=== PATIENT | female | born 1960 | race Caucasian/White ===

== ENCOUNTER 2017-11-21 10:21 | Observation (INO) | payer BC, SELFPAY ==
[2017-11-21] VITALS (12 sets, daily range): BP systolic 114–150; BP diastolic 59–82; PULSE 54–83; RESP 16–20; TEMP 35.9–36.8; O2SAT 84–99; BMI 38.7
--- NOTE | 2017-11-21 | GALL_PTH ---
PATIENT: CLYDE REES LOC: MS3 U#:[id number] AGE/SX: 57/F ROOM: MS315 RE11/21/[address]: Dr. Roxanne Piper MD : 1960 BED: 1 DIS: 11/22/2017 SPEC #: [id number] RECD: 11/22/17 14:11 STATUS: JOSIAH REGabby #: [id number] BASIA: 11/21/17 00:[address]: Roxanne Piper DEPT: SURGICAL PATHOLOGY RECD BY: Ant Steiner ENTERED: 11/22/17 14:11 SP TYPE: ASPEN NOVOA DR: No Primary Care Phys Tissues: Gallbladder, NOS Procedures: Surgery Specimen Level III HEADER OPERATION: Laparoscopic cholecystectomy with IOC PRE-OP DIAGNOSIS: Cholelithiasis, right upper quadrant pain TISSUE SUBMITTED: Gallbladder and contents MICROSCOPIC DIAGNOSIS Gallbladder and contents: Acute and chronic hemorrhagic and ulcerated cholecystitis and cholelithiasis. SJ:ruby 11/23/17 MICROSCOPIC DESCRIPTION Slides are reviewed. GROSS DESCRIPTION Received is one container labeled with the patient's name and designated gallbladder. The specimen consists of a previously opened gallbladder measuring 7.5 cm in length and 3.5 cm in diameter. The gallbladder is congested. Present in the gallbladder is an ovoid, black, irregular stone measuring 4 x 2.5 x 2 cm. A small amount of sludge material is also noted in the gallbladder. No bile is noted. A small amount of sludge material is noted in the container. No bile is noted in the gallbladder. The mucosa is congested. The gallbladder wall measures up to 0.5 cm in thickness. Registered Nurse Ambulatory sections from the gallbladder and the cystic duct are submitted in one cassette. / ESTEPHANIE:ruby 11/22/17 TC:2 CPT: 68735
--- NOTE | 2017-11-21 06:05 | EKG12_ITS ---
Test Reason : PRE-OP Blood Pressure : / mmHG Vent. Rate : 074 BPM Atrial Rate : 074 BPM P-R Int : 124 ms QRS Dur : 080 ms QT Int : 394 ms P-R-T Axes : 072 -22 043 degrees QTc Int : 437 ms Normal sinus rhythm Normal ECG Confirmed by ELSIE PIRES, NINA ([id number]), supervising film or videotape editor JUAN A SILVA ([id number]) on 11/26/2017 2:04:17 PM Referred By: Roxanne Piper Confirmed By:NINA ZIMMERMAN MD
[2017-11-21 06:33] LABS: Hematocrit 48.8 % (37-47); Hemoglobin 16.4 g/dl (12.0-15.0); Mean Corp Hgb Conc 33.6 g/gl (32-36); Mean Corpuscular Hgb 30.8 pg (27.0-32.0); Mean Corpuscular Volume 91.7 fL (81-99); Mean Platelet Vol. 10.3 fl (6.2-12.0); Platelet Count 205 K/mm3 (150-450); RBC Distribution Width CV 13.6 % (11.6-14.6); RBC Distribution Width SD 45.6 fl (35.1-43.9); Red Blood Count 5.32 M/mm3 (4.2-5.4); White Blood Count 9.3 K/mm3 (4.4-11.0)
[2017-11-21 06:37] LABS: Scan Indicated on CBC? Y/N NO
--- NOTE | 2017-11-21 06:40 | HP.PCM_ITS ---
History and Physical Date of Admission: 11/21/17 Reina Olivas 1960 ? ? REFERRING PHYSICIAN: Vinayak Sheffield * ? CHIEF COMPLAINT: Abdominal Pain ? HPI: The patient is a 57 year old female presents with right upper quadrant abdominal pain. US gallbladder today reveals stone in the neck of the gallbladder, the gallbladder is distended and filled with sludge, also with wall thickening. Patient states that she has been having abdominal pain for the past two weeks. She has been only able to eat crackers and water due to nausea/emesis and then dry retching. Denies fevers/chills. Denies previous history of abdominal pain. Denies biliary obstructive signs such as jaundice, icterus, etc. ?? PAST MEDICAL HISTORY Adenomatous polyp of colon 10/27/2016 MICKEY III (cervical intraepithelial neoplasia grade III) with severe dysplasia 01/17/2017 ? Added automatically from request for surgery [id number] Diverticulosis of large intestine without hemorrhage 10/27/2016 HPV in female ? Menorrhagia ? ILIA III (vulvar intraepithelial neoplasia III) 01/17/2017 ? Added automatically from request for surgery [id number] ? PAST SURGICAL HISTORY BIOPSY OF VULVA ? 12/21/2016 DELIVERY ONLY ? 1990 ? , low cervical COLONOSCOP W/ OR W/O [facility] [place] [facility] ? 08/01/2013 ? Colonoscopy COLONOSCOP W/ OR W/O [facility] [place] [facility] ? 10/20/2016 ? Colonoscopy- tubular adenomas x 2 repeat in 3 years LIGATE FALLOPIAN TUBE ? ? ? Tubal ligation ? ? PAST INJURIES Denies head injuries, denies history of fractures ? ?MEDICATIONS: ondansetron orally disintegrating (ZOFRAN ODT) 4 mg disintegrating tablet Take 1 tablet by mouth every 6 hours as needed for Nausea/Vomiting. ibuprofen (MOTRIN) 600 mg tablet Take 1 tablet by mouth every 6 hours as needed for Pain. docusate sodium (COLACE) 100 mg capsule Take 1 capsule by mouth twice daily. MULTIVITAMIN ORAL Take 1 tablet by mouth once daily. ? ? ALLERGIES: Cats; Sulfa (Sulfonamide Antibiotics) ? PERSONAL HISTORY: Social History Marital status: Single Spouse name: Years of education: Number of children: 4 Occupational History Occupation Employer Comment [employer] Social History Main Topics Smoking status: Current Every Day Smoker Packs/day: 0.50 Years: 0.00 Types: Cigarettes Start date: 1978 Smokeless tobacco: Never Used Alcohol use: Yes Comment: rarely Drug use: No Sexual activity: No ?? FAMILY HISTORY Emphysema Mother ? Diabetes Mother ? Diabetes Maternal Grandmother ? ? ? REVIEW OF SYSTEMS: General - denies fevers Cardiovascular - denies chest pain Pulmonary - denies shortness of breath, denies coughing up blood Gastrointestinal - see HPI Neurological - denies seizures Genitourinary - denies burning with urination, denies blood in urine Hematological - denies spontaneous/prolonged bleeding Skin - denies nonhealing skin wounds Musculoskeletal - denies chronic joint/back pain Endocrine - denies diabetes Psychological denies hallucinations ? PHYSICAL EXAMINATION: General: The patient is 57 year old female, well nourished, well hydrated in no acute distress. The patient is oriented to time, place, and person. VITALS: Ht: 5'2 Wt 212# BMI 39 Head Normocephalic. EOM intact with sclera clear and no icterus noted. Mouth with mucus membranes moist. Neck - supple with no jugular venous distention noted. Trachea is midline. No carotid bruits noted. Lungs clear to auscultation, distant breath sounds. No rales/rhonchi/wheezing noted. No labored breathing noted, such as retractions. . Heart distant S1 and S2 auscultated. No rubs/clicks/murmurs noted. Regular rate. Abdomen soft and benign. Normal bowel sounds. No abdominal bruits noted. Difficult to determine if any masses or organomegaly due to body habitus. Extremities no calf tenderness noted. No pitting edema noted. Skin normal skin integrity. Neurological gait normal, no focal deficits noted. Psych calm and appropriate RADIOLOGIC STUDIES: As Noted ? IMPRESSION: cholelithiasis ? PLAN: I have discussed the above with the patient. I have offered laparoscopic cholecystectomy, possible cholangiograms. I have offered surgery tomorrow, but patient defers this. Will try to schedule for Sunday. I have explained the procedure to the patient. I have counseled the patient as to the risks of the procedure, including but not limited to: infection, bleeding, injury to any blood vessels/nerves, scar tissue, injury to any intraabdominal organs, injury to bowel/bladder, injury to the common bile duct/biliary tree, bile leakage, intraabdominal abscess/bleeding , hernias at incisional sites, wound infections, complications of anesthesia, etc. the patient understands. The patient wishes to proceed. I have answered all questions to the patients satisfaction and the patient has no further questions. Diagnoses: (K80.00) Calculus of gallbladder with acute cholecystitis without obstruction (primary encounter diagnosis) (E66.09, Z68.39) Class 2 obesity due to excess calories without serious comorbidity with body mass index (BMI) of 39.0 to 39.9 in adult (Z72.0) Tobacco use ? ? ? Roxanne Piper MD
--- NOTE | 2017-11-21 08:28 | PCM.IMDPSTOP ---
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
--- NOTE | 2017-11-21 08:29 | PCM.DC.GB ---
Discharge Diet: No Restrictions Discharge Activity: Return to Normal Activity, May not drive while taking narcotic pain medications. Return to work on:: 12/07/17 Lifting Restrictions: no lifting greater than 20 pounds for two weeks Call your doctor if your incision/area has: Continuous Slow Oozing, Foul Smelling Discharge Call your doctor if you observe: Fever of 101 or Higher Additional Dressing/Incision Instructions:: Leave dressings in place. May get wet in shower. Do not soak wounds - no tub baths/swimming Allergies/Adverse Reactions: Allergies Sulfa (Sulfonamide Antibiotics) Allergy (Verified 11/20/17 16:05) Hives Medications to take at Discharge Multivitamins,Therapeutic [Multivitamin] 1 tablet PO DAILY 07/28/14 Hydrocodone/Acetaminophen [[facility] 5-325 Tablet] 1 ea PO Q6H PRN PRN 5 Days #15 tab 11/21/17 The following prescriptions were given: Hydrocodone/Acetaminophen [[facility] 5-325 Tablet] 1 ea PO Q6H PRN PRN 5 Days #15 tab PRN Reason: Pain Primary Care Physician: Care Physician,No Primary [Primary Care Provider] - Test Results: Test results from this visit will be discussed in further detail at your follow-up appointment, if applicable. Please Follow Up With: Roxanne Piper MD - call When: follow up with me next week for drain removal
[2017-11-21] MEDS: Cefazolin 2 GM in 0.9% Normal Saline 100 ML IV (08:32)
--- NOTE | 2017-11-21 09:15 | RAD_ITS ---
STUDY: INTRAOPERATIVE CHOLANGIOGRAM. REASON FOR EXAM: Female, 57 years old. Laparoscopic cholecystectomy. FLUOROSCOPY TIME (if supplied): (0:10) minutes/seconds TECHNIQUE: An intraoperative cholangiogram was performed by the surgeon. Imaging was submitted. COMPARISON: None. FINDINGS: A single image was submitted. Mild dilatation of the common bile duct. No contrast is seen within the duodenum. Possible distal common bile duct stones should be ruled out. RAD/Cholangiogram/ O R,Initial IMPRESSION: Mild dilatation of the common bile duct. No contrast is seen within the duodenum. Possible stones in the distal common bile duct. Electronically Signed: Pedro Philippe MD at 10:57 EDT Tel [phone], Service support ,
--- NOTE | 2017-11-21 10:21 | OP.PCM_ITS ---
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 Appropriate time out protocol was followed. The patient was then placed under general endotracheal anesthesia. The abdomen was then prepped with a sterile surgical skin preparation and sterile surgical drapes were placed. The supraumbilical skin fold was grasped with penetrating clamps and the skin and subcutaneous tissues were infiltrated with local anesthetic. A skin incision was then made with a 15 blade scalpel. The anterior abdominal wall was elevated and a Veress needle was carefully inserted into the intraabdominal cavity. It was checked to be in the proper position with a normal saline drop test. A CO2 pneumoperitoneum was then created. Once this was achieved, then the Veress needle was removed and an 11mm trocar was placed in its stead. A 10mm laparoscope was then inserted into the trocar and careful attention was directed to the intraabdominal contents. There was no evidence of injury to any intraabdominal organs from insertion of the Veress needle or the trocar. Under direct visualization, a 5mm subxiphoid trocar and two lateral 5mm right subcostal trocars were placed. The skin and subcutaneous tissues at these sites were infiltrated with local anethestic prior to placement of these trocars. Attention was then directed to the right upper quadrant of the abdomen. The gallbladder had omental adhesions to the free surface. These were taken down by electrocautery. The gallbladder wall was thickened and edematous. Surrounding tissue were inflamed. Taking down these adhesions took some time. Findings are consistent with severe acute on chronic cholecystitis. There were large stones in the gallbladder noted. Graspers were placed in the lateral trocars to grasp the distal aspect of the gallbladder and direct it cephalad and to grasp the gallbladder at Fatima?s pouch and direct it laterally. Dissection then began on the proximal gallbladder continuing down to the area of the triangle of Calot to bluntly dissect out the cystic duct. There was dense edematous tissue in this area, the dissection took some time. The neck of the gallbladder was then identified and blunt dissection continued to dissect out a segment of the cystic duct. A clip was then placed on the neck of the gallbladder. A small ductotomy was then made. A Ranfac catheter was brought in through a separate skin incision and placed into the cystic duct. An intraoperative cholangiogram was performed under fluoroscopy. The xray revealed no lesions in the common bile duct, arborization of the biliary tree, however, there was no flow into the duodenum. The patient was given glucagon by the anesthesia provider and it was allowed to circulate for at least 3 minutes. Also the catheter was flushed and irrigated gently. A repeat cholangiogram revealed no flow into the duodenum. The Ranfac catheter was then removed and two clips were placed proximal to the ductotomy and the cystic duct was then transected. The cystic artery was visualized and bluntly isolated and then two clips were placed proximally and one clip distally and then it was transected between the proximal and distal clips. The gallbladder was then from the liver bed using electrocautery. This took some time due the inflammatory tissues of the posterior gallbladder wall to the liver bed with no plane delineated. There was inflammatory oozing of the liver bed. The gallbladder was from the liver bed and placed in an endobag and brought out via the periumbilical trocar. It was then forwarded to pathology for analysis. The liver bed was carefully examined. There was no evidence of bile leakage or active bleeding. There was inflammatory oozing of the liver bed that was treated with placing surgicel against the liver bed. The cystic duct stump and cystic artery stump had their clips intact and there was no evidence of bile leakage or bleeding. Deyvi was also applied to the area of dissection. The remainder of the abdomen was grossly normal. A 15 Fr drain was brought in via one of the lateral trocars and sutured in placed to the abdominal wall skin using nylon suture. The CO2 was released and all trocars removed intact. The periumbilical fascia was approximated with a [id number] 0 vicryl suture. All skin incision were closed with 4-0 monocryl in a subdermal fashion. Cavilol and Steristrips were used to reinforce the skin closure. Sterile dressings were applied to all wounds. The patient was extubated and brought to the Recovery Room in stable condition. - Complications none noted - Admit VTE Documentation VTE Present on Admission: Yes VTE Mechan Device Prophylaxis: SCD's
[2017-11-21] MEDS: Lactated Ringers 1,000 ML 75 ML IV ×2 (11:32→20:33)
[2017-11-21] MEDS: Ondansetron 4 MG/2 ML Vial IV (11:57)
[2017-11-21] MEDS: 0.9% NaCl Peripheral Flush Adult/Peds IV ×2 (11:57→20:16)
[2017-11-21] MEDS: HYDROcodone Bitartrate/Apap 5/325 Tablet PO ×2 (17:15→20:16)
[2017-11-22] VITALS (10 sets, daily range): BP systolic 120–158; BP diastolic 59–83; PULSE 60–83; RESP 12–18; TEMP 36.5–36.7; O2SAT 83–96; BMI 38.7
[2017-11-22] MEDS: Morphine 4 MG/ML Syringe IV (06:46)
--- NOTE | 2017-11-22 08:22 | PCM.PN.SRG ---
Subjective: Patient feeling well this morning. - Physical Exam General: Alert, Oriented x3, Cooperative Neck: Supple Lungs: Normal air movement Cardiovascular: Regular rate, Regular Rhythm Abdomen: Soft, Non-Distended, Tender - Mild abdominal tenderness Musculoskeletal: No Muscle Wasting Psych/Mental Status: Normal Affect Vital Signs Temp Pulse Resp BP Pulse Ox 97.8 F 60 14 120/67 92 11/22/17 07:40 11/22/17 07:40 11/22/17 07:40 11/22/17 07:40 11/22/17 07:40 Oxygen Flow Rate (L/min) 2 Oxygen Delivery Method Room Air Weight: 211 lb 10.3 oz Body Mass Index (BMI) 38.7 Intake and Output for Last 24 Hours 11/20/17 11/21/17 11/22/17 23:59 23:59 23:59 Intake Total 2861 / 2861 1511 / 1511 Output Total 190 / 190 1380 / 1380 Balance 2671 / 2671 131 / 131 Clinical Impression(s) from Imaging Studies Cholangiogram 11/21/17 09:15 IMPRESSION: Mild dilatation of the common bile duct. No contrast is seen within the duodenum. Possible stones in the distal common bile duct. Electronically Signed: Pedro Philippe MD at 10:57 EDT Tel [phone], Service support , Medical Necessity - Tobacco Use Smoking Status: Current every day smoker Assessment/Plan 57-year-old female with acute cholecystitis and possible choledocholithiasis 1. Patient had cholangiogram during surgery yesterday which showed no flow into the duodenum and there is concern for choledocholithiasis as there is dilation of the biliary tree. 2. I discussed ERCP with the patient in detail today. I discussed the risks benefits alternatives. I discussed the risks including but not limited to bleeding, infection, perforation of the bowels or bile duct, pancreatitis. The patient understands the risks and is willing to proceed with surgery. I also explain the possibilities having to place a stent or being unable to cannulate the duct. 3. N.p.o., IV fluids 4. Plan for ERCP this afternoon Mando Fay MD Pager: [facility] [address] [place] [address], [address] [place] [phone] Office:
--- NOTE | 2017-11-22 08:25 | PN.SURG_ITS ---
Subjective: Patient feeling well this morning. - Physical Exam General: Alert, Oriented x3, Cooperative Neck: Supple Lungs: Normal air movement Cardiovascular: Regular rate, Regular Rhythm Abdomen: Soft, Non-Distended, Tender - Mild abdominal tenderness Musculoskeletal: No Muscle Wasting Psych/Mental Status: Normal Affect Vital Signs Temp Pulse Resp BP Pulse Ox 97.8 F 60 14 120/67 92 11/22/17 07:40 11/22/17 07:40 11/22/17 07:40 11/22/17 07:40 11/22/17 07:40 Oxygen Flow Rate (L/min) 2 Oxygen Delivery Method Room Air Weight: 211 lb 10.3 oz Body Mass Index (BMI) 38.7 Intake and Output for Last 24 Hours 11/20/17 11/21/17 11/22/17 23:59 23:59 23:59 Intake Total 2861 / 2861 1511 / 1511 Output Total 190 / 190 1380 / 1380 Balance 2671 / 2671 131 / 131 Clinical Impression(s) from Imaging Studies Cholangiogram 11/21/17 09:15 IMPRESSION: Mild dilatation of the common bile duct. No contrast is seen within the duodenum. Possible stones in the distal common bile duct. Electronically Signed: Pedro Philippe MD at 10:57 EDT Tel [phone], Service support , Medical Necessity - Tobacco Use Smoking Status: Current every day smoker Assessment/Plan 57-year-old female with acute cholecystitis and possible choledocholithiasis 1. Patient had cholangiogram during surgery yesterday which showed no flow into the duodenum and there is concern for choledocholithiasis as there is dilation of the biliary tree. 2. I discussed ERCP with the patient in detail today. I discussed the risks benefits alternatives. I discussed the risks including but not limited to bleeding, infection, perforation of the bowels or bile duct, pancreatitis. The patient understands the risks and is willing to proceed with surgery. I also explain the possibilities having to place a stent or being unable to cannulate the duct. 3. N.p.o., IV fluids 4. Plan for ERCP this afternoon Mando Fay MD Pager: [facility] [address] [place] [address], [address] [place] [phone] Office:
[2017-11-22] MEDS: Lactated Ringers 1,000 ML 75 ML IV (10:13)
--- NOTE | 2017-11-22 13:25 | RAD_ITS ---
STUDY: X-RAY CHEST REASON FOR EXAM: Female, 57 years old. Dyspnea and productive cough. TECHNIQUE: PA and lateral views of the chest. COMPARISON: None. FINDINGS: EKG electrodes are seen. There is evidence of increased markings in the posterior medial segment of the left lower lobe. Focal infiltrate should be ruled out. There is no demonstrated pleural abnormality. Normal size heart. Normal mediastinum and mike. Normal visualized pulmonary arteries. Normal visualized aortic arch and descending thoracic aorta. Normal visualized thoracic spine. Normal visualized ribs, clavicles, and shoulders. There is no demonstrated abnormality of the visualized soft tissue structures of the upper abdomen. RAD/Chest PA and Lateral IMPRESSION: Findings suggestive of focal infiltrate in the posterior medial segment of the left lower lobe. Electronically Signed: Pedro Philippe MD at 15:11 EDT Tel [phone], Service support ,
--- NOTE | 2017-11-22 13:43 | PCM.PN.HOSP ---
Subjective: Medical consult: Asked to see patient for medical management. She is a 57-year-old female with past medical history of chronic nicotine dependency, diverticulosis, colonic polyp, ILIA/MICKEY s/p biopsy who was electively admitted with right upper quadrant abdominal pain. Had complained of abdominal pain for 2 weeks associated with nausea and vomiting but denied any fever or chills. Ultrasound of the gallbladder heart reveals stone in the neck of the gallbladder with distended gallbladder filled with sludge and wall thickening. Patient underwent laparoscopic cholecystectomy on 11/21/[address] Piper. According to anesthesia, patient has some bronchospasms which wheezes at the time of the procedure. An intraoperative cholangiogram done showed mild dilatation of the common bile duct with no contrast in the duodenum concerning for possible stones in the distal common bile duct. Patient was kept for ERCP and was noted to have hypoxia in the PACU. She was said to be wheezing and her oxygen sats were 89% on 6 L of oxygen. He was given a breathing treatment and chest x-ray as well as ABG were requested. At the time of examining patient, she appeared comfortable, oxygen saturation was 85% on room air. She denied any work of breathing. Denies any chest pain or dizziness or palpitations of fever or chills or pain Vitals/I&O's: Vital Signs Temp Pulse Resp BP Pulse Ox 97.7 F L 70 18 132/61 H 89 11/22/17 12:15 11/22/17 13:15 11/22/17 13:15 11/22/17 12:15 11/22/17 13:16 Oxygen Flow Rate (L/min) 6 Oxygen Delivery Method Nasal Cannula Weight: 96 kg Body Mass Index (BMI) 38.7 Intake and Output for Last 24 Hours 11/20/17 11/21/17 11/22/17 23:59 23:59 23:59 Intake Total 2861 / 2861 1881 / 1881 Output Total 190 / 190 1880 / 1880 Balance 2671 / 2671 General: Alert, Oriented x3, Cooperative, No apparent distress, - - Able to talk in complete sentences HEENT: Atraumatic, PERRLA, EOMI, Normocephalic Oral: Moist Mucosa Neck: Supple Lungs: Clear to auscultation, Normal air movement Cardiovascular: Regular rate, Regular Rhythm, Normal S1, Normal S2, No murmurs Abdomen: Bowel Sounds Present, Soft, Non Tender, Non-Distended, No Hepato-splenomegaly Extremities: No edema Skin: No rashes, No breakdown Musculoskeletal: No Tenderness to Palpation of Joints or Extremities Lymphatic: No Cervical, Supraclavicular, or Inguinal Adenopathy Neurological: Cranial nerves II-XII grossly intact, Neuro grossly intact Psych/Mental Status: Normal Affect, Appropriate Current Medications Hydrocodone Bitart/Acetaminophen ([place] 5mg-325mg) 2 tablet PO Q4H PRN PRN PRN Reason: SEVERE PAIN (6-1010) Last Admin: 11/21/17 20:16 Dose: 1 tablet Lactated Ringer's () 1,000 mls @ 75 mls/hr IV .[id number] HARSHIL Last Admin: 11/22/17 10:13 Dose: 75 mls/hr Morphine Sulfate () 4 mg IV Q1H PRN PRN PRN Reason: SEVERE PAIN (6-1010) Last Admin: 11/22/17 06:46 Dose: 4 mg Ondansetron HCl (Zofran) 4 mg IV Q6H PRN PRN PRN Reason: NAUSEA/VOMITING Last Admin: 11/21/17 11:57 Dose: 4 mg Promethazine HCl (Phenergan) 12.5 mg IV Q4H PRN PRN PRN Reason: NAUSEA/VOMITING Sodium Chloride () 5 - 30 ml IV UD PRN PRN Reason: SALINE FLUSH Last Admin: 11/21/17 20:16 Dose: 10 ml Medical Necessity - Tobacco Use Smoking Status: Current every day smoker Assessment/Plan 57-year-old female with past medical history of nicotine dependence who comes in with a two-week abdominal pain and had elective laparoscopic cholecystectomy on 11/21/17. Intraoperative cholangiogram was suggestive of distal common bile duct stones. Patient was planned for ERCP today and was noted to be hypoxic. 1. Hypoxia, in a known smoker, likely related to post-op atelectasis, undiagnosed COPD. Recent laparoscopic cholecystectomy. No wheezes at the time of exam. Patient is saturating at 85% on room air. Able to complete full sentences. Chest x-ray shows interstitial changes/ vascular markings, more on the right side, atelectasis in both lung zones. Discussed with radiologist, looks more like bilateral atelectasis. ABG is unremarkable. Plan: Continue with breathing treatments around the clock as patient had responded very well to them, patient would very likely need to have outpatient PFTs in 4-6 weeks. No indication for steroids at the moment. Would have a very low threshold to start patient on steroids if she is still remains symptomatic and is wheezing. I would encourage use of incentive spirometer Q1h while awake. Repeat CXR in am. 2. Cholelithiasis/choledocholithiasis, status post laparoscopic cholecystectomy, POD #1, pain is fairly controlled 3. Nicotine dependency, advised to quit 4. H/o MICKEY/ILIA s/p biopsy, no pathology report in the system. 5. Diverticulosis, colonic polyps 6. DVT PPx - per surgeon's recommendation. Discussed with Dr. Hoang and Dr. Piper Code Visit Inpatient E&M: 78574 Subs Hosp L3
[2017-11-22 15:06] LABS: Allen Test POS; Base Excess 5 mmol/L (-2 to +2); Bicarbonate 28.6 mmol/L (22-26); Blood Gas Specimen Type ART; O2 Delivery Device Room Air; PO2 54 mmHG (75-100); SITE R Radial; SO2 90 % (95-99); Time Given 1445; Total Carbon Dioxide 30 mmol/L; pH 7.47 (7.35-7.45)
[2017-11-22] MEDS: 0.9% NaCl Peripheral Flush Adult/Peds IV ×2 (15:25→22:21)
[2017-11-22] MEDS: Ipratropium/Albuterol Sulfate 3 ML AMPUL.NEB INHALATION ×2 (16:15→19:52)
--- NOTE | 2017-11-22 16:50 | PCM.PN.SRG ---
Subjective: Reina is doing well, s/p lap holden with IOC yesterday Found to have no flow into duodenum - felt to be obstructing CBD stone Was scheduled for ERCP this morning, but cancelled due to low O2 saturation patient with undiagnosed COPD improvement with nebs consult with hospitalists who agree with diagnosis of COPD, treating with round the clock nebulizers Patient presently feels well, minimal abdominal pain, feels hungry - Physical Exam General: Alert, Oriented x3 Oral: Moist Mucosa Neck: Supple Lungs: Diminished - unchanged from my preop examination Abdomen: Bowel Sounds Present, Soft, - - PRAKASH drain output is serosanguinous Dressings intact Vital Signs Temp Pulse Resp BP Pulse Ox 98.0 F 66 18 158/83 H 96 11/22/17 15:15 11/22/17 16:15 11/22/17 16:15 11/22/17 15:15 11/22/17 15:15 Oxygen Flow Rate (L/min) 2 Oxygen Delivery Method Nasal Cannula Weight: 96 kg Body Mass Index (BMI) 38.7 Intake and Output for Last 24 Hours 11/20/17 11/21/17 11/22/17 23:59 23:59 23:59 Intake Total 2861 / 2861 1881 / 1881 Output Total 190 / 190 1880 / 1880 Balance 2671 / 2671 Laboratory Tests Past 24 Hrs 11/22/17 14:58 Specimen Type ART Sample Site R Radial pH 7.47 H Bicarbonate Actual 28.6 H POC Total CO2 30 Base Excess 5 H O2 Saturation 90 L ABG pCO2 39.0 ABG pO2 54 L Isac Test POS O2 Delivery Device Room Air Blood Gas Notified Whom OTHER Blood Gas Notified Time 1445 Medical Necessity - Tobacco Use Smoking Status: Current every day smoker Assessment/Plan POD#1 s/p laparoscopic cholecystectomy with IOC findings of CBD obstruction by IOC Plan: have consulted hospitalist service for evaluation of newly diagnosed COPD and they are managing this patient still awaiting COPD, discussed with anesthesia - will not be able to do patient I have therefore consulted with [facility] for transfer for ERCP I have discussed above with patient and she agrees to proceed Will start with regular diet and then NPO after MDNT in anticipation for procedure that may be done tomorrow
--- NOTE | 2017-11-22 17:00 | DS.PCM_ITS ---
Discharge Summary Date of Admission: 11/21/17 Date of Discharge: 11/22/17 Summary: Elsie Olivas is a pleasant 57 y/o WF who presented with greater than 2 weeks history of abdominal pain - epigastric and right sided. With severe nausea and emesis, only able to take in water and crackers. Underwent laparoscopic cholecystectomy with intraoperative cholangiogram on 11/21/17. Found to have severe acute on chronic cholecystitis with cholelithiasis with IOC revealing complete common bile duct obstruction. Patient was scheduled for ERCP the next morning (11/22/17) and kept overnight for observation. ERCP was cancelled due to low oxygen saturation, patient found to have undiagnosed COPD and internal medicine was consulted for management. Because anesthesia unavailable for ERCP, will transfer to [facility] for this procedure. Patient understands all of this and agrees.
--- NOTE | 2017-11-22 22:11 | NURSING ---
[facility]
== END 2017-11-22 22:35 | disposition short-term general hospital (02) ==
LOC: MS3 11:23
PROVIDERS: Surgery; Admitting Provider Surgery; Visit Provider Surgery
PROC: (CPT 47610; principal; 2017-11-21 08:10)
DX: K80.13 Calculus of gallbladder with acute and chronic cholecystitis with obstruction (principal); K57.90 Diverticulosis of intestine, part unspecified, without perforation or abscess without bleeding; J44.9 Chronic obstructive pulmonary disease, unspecified; F17.210 Nicotine dependence, cigarettes, uncomplicated; E66.8 Other obesity; Z68.38 Body mass index [BMI] 38.0-38.9, adult; Z71.3 Dietary counseling and surveillance
CPT/HCPCS: 00790; 47563; 36415; 36600; 71046; 74300; 76000; 82803; 85027; 88304; 93005; 94640; J7120; A4216; J1610; J2405

== ENCOUNTER 2022-08-04 15:38 | Emergency (ER) | payer OTHER, SELFPAY ==
[2022-08-04] VITALS (10 sets, daily range): BP systolic 135–163; BP diastolic 72–82; PULSE 72–87; RESP 18–20; TEMP 36.4; O2SAT 87–96; BMI 38.5
--- NOTE | 2022-08-04 16:13 | RAD_ITS ---
STUDY: X-RAY CHEST REASON FOR EXAM: Female, 61 years old. Cough. TECHNIQUE: Single AP portable view of the chest. COMPARISON: November 22, 2017. FINDINGS: The lungs are well expanded. There is chronic interstitial changes at the lung bases. No new infiltrate or mass. There is no demonstrated pleural abnormality. Normal size heart. Normal mediastinum and mike. Normal visualized pulmonary arteries. Normal visualized aortic arch and descending thoracic aorta. No osseous changes. There is no demonstrated abnormality of the visualized soft tissue structures of the upper abdomen. RAD/Chest 1 View (Portable) IMPRESSION: No acute cardiopulmonary disease. Electronically Signed: Tam Granados DO at 16:39 EDT ,
--- NOTE | 2022-08-04 16:24 | EDS_ITS ---
HPI <MUKUL Sexton - Last Filed: 08/04/22 19:19> History of Present Illness Chief Complaint: Cough Narrative Narrative: 61-year-old female with PMH of tobacco use presents with 1 week of runny nose and cough and congestion. Over the last couple days she has developed body aches, worsening cough, and occasionally feels short of breath when she has a lot of phlegm. No chest pain. She is having subjective fever and chills. No nausea vomiting or diarrhea. She lives with her 2 grandchildren who had a similar illness. She typically smokes 1/2 PPD and states she does not have a history of COPD but uses an albuterol inhaler as needed. PFSH <MUKUL Sexton Last Filed: 08/04/22 19:19> PFSH Medical History no medical history Home Medications multivitamin with folic acid 400 mcg tablet (Thera) 1 tab PO DAILY 07/28/14 [History Last Taken Unknown] prednisone 20 mg tablet 40 mg PO DAILY 5 days #10 tabs 08/04/22 [Rx Last Taken Unknown] Allergy/AdvReac Type Severity Reaction Status Date / Time Sulfa (Sulfonamide Allergy Hives Verified 08/04/22 15:39 Antibiotics) Social History Smoking Status: Current every day smoker tobacco type: cigarettes ROS <MUKUL Sexton - Last Filed: 08/04/22 19:19> ROS ED ROS Narrative Constitutional: Positive for fever, chills, malaise. ENT: Positive for rhinorrhea. Negative for sore throat, ear pain. CVS: Negative for palpitations, chest pain, syncope. Respiratory: Positive for shortness of breath, cough. GI: Negative for abdominal pain, nausea, vomiting, diarrhea, constipation, melena, hematochezia. Neuro: Negative for headache. Skin: Negative for rash. EXAM <MUKUL Sexton Last Filed: 08/04/22 19:19> Physical Exam Narrative Exam Narrative: CONST: Patient sitting in no acute distress. EYES: Normal inspection. ENT: Mild pharyngeal erythema, moist mucous membranes. Nares clear, normal TMs bilaterally. NECK: Normal inspection. No meningismus. RESP: No respiratory distress, faint expiratory wheeze in all lung márquez. CVS: Regular rate and rhythm, no murmur, no gallop. SKIN: Color normal, no rash, warm, dry, intact. EXTREMITIES: Normal appearance, no pedal edema. NEURO: Oriented x4. PSYCH: Normal affect. Const Vital Signs: 08/04/22 15:41 08/04/22 16:21 08/04/22 16:30 Temperature 97.5 F L Temperature Source Temporal Pulse Rate 87 83 Respiratory Rate 18 20 H Respiratory Effort Normal Blood Pressure 163/81 H Blood Pressure Mean 108 Pulse Ox 93 Oxygen Delivery Method Room Air Oxygen Flow Rate (L/min) 08/04/22 16:31 08/04/22 17:18 08/04/22 17:35 Temperature Temperature Source Pulse Rate 72 82 Respiratory Rate 18 20 H Respiratory Effort Blood Pressure 144/82 H Blood Pressure Mean 102 Pulse Ox 93 88 Oxygen Delivery Method Room Air Room Air Oxygen Flow Rate (L/min) 08/04/22 17:36 08/04/22 18:46 08/04/22 19:39 Temperature Temperature Source Pulse Rate 77 Respiratory Rate 20 H Respiratory Effort Blood Pressure 135/72 H Blood Pressure Mean 93 Pulse Ox 96 94 92 Oxygen Delivery Method Nasal Cannula Nasal Cannula Nasal Cannula Oxygen Flow Rate (L/min) 2 2 2 <Dr. Stuart Null DO - Last Filed: 08/04/22 23:15> Physical Exam Const Vital Signs: 08/04/22 15:41 08/04/22 16:21 08/04/22 16:30 Temperature 97.5 F L Temperature Source Temporal Pulse Rate 87 83 Respiratory Rate 18 20 H Respiratory Effort Normal Blood Pressure 163/81 H Blood Pressure Mean 108 Pulse Ox 93 Oxygen Delivery Method Room Air Oxygen Flow Rate (L/min) 08/04/22 16:31 08/04/22 17:18 08/04/22 17:35 Temperature Temperature Source Pulse Rate 72 82 Respiratory Rate 18 20 H Respiratory Effort Blood Pressure 144/82 H Blood Pressure Mean 102 Pulse Ox 93 88 Oxygen Delivery Method Room Air Room Air Oxygen Flow Rate (L/min) 08/04/22 17:36 08/04/22 18:46 08/04/22 19:39 Temperature Temperature Source Pulse Rate 77 Respiratory Rate 20 H Respiratory Effort Blood Pressure 135/72 H Blood Pressure Mean 93 Pulse Ox 96 94 92 Oxygen Delivery Method Nasal Cannula Nasal Cannula Nasal Cannula Oxygen Flow Rate (L/min) 2 2 2 MDM <Radha Temple PA - Last Filed: 08/04/22 19:19> MDM MDM Narrative Medical decision making narrative: Patient has had a week of body aches, runny nose, productive cough. Her gra ndchildren have similar symptoms. She appears well and nontoxic. She is mildly hypertensive with otherwise normal vital signs. She speaking in full sentences in no respiratory distress. Faint expiratory wheeze in all lung márquez. Otherwise benign exam. CXR is negative and COVID/flu swabs negative. Patient was treated with a DuoNeb and ibuprofen for her body aches and was feeling improved but dropped to 88% on room air and was placed on 2 L. Labs were ordered as well as IV Solu-Medrol and a repeat DuoNeb. CBC shows normal white count at 10.3. BMP remarkable for potassium 3.0, otherwise normal. She was given oral K replacement. Patient was reevaluated and states she feels significantly better. When ambulated again she was 87 to 90% on room air. She was not dyspneic feeling at all. I recommended admission for likely viral URI/underlying diagnosis COPD exacerbation but patient wants to go home. We discussed she would be leaving AGAINST MEDICAL ADVICE and risks include worse maxine of symptoms, respiratory failure, and . She expressed understanding. Patient was prescribed prednisone and given a new albuterol inhaler. She should return if any symptoms worsen. She was discharged in stable condition. Differential: Viral URI, bacterial pneumonia Test considered but not ordered: Patient has no chest pain and has had exposure to viral illness and is coughing/wheezing so I do not suspect ACS/PE so did not order work-up for this. Lab Data Attestation: I reviewed the patient's lab results. Labs: Laboratory Results - last 24 hr 08/04/22 08/04/22 08/04/22 17:35 17:35 17:35 WBC 10.3 RBC 4.98 Hgb 15.1 H Hct 45.9 MCV 92.2 MCH 30.3 MCHC 32.9 RDW Std Deviation 45.3 H RDW Coeff of Jose Luis 13.3 Plt Count 195 MPV 10.0 Immature Gran % (Auto) 0.400 Neut % (Auto) 73.3 H Lymph % (Auto) 18.6 L [place] % (Auto) 6.8 Eos % (Auto) 0.4 Baso % (Auto) 0.5 Absolute Neuts (auto) 7.6 Absolute Lymphs (auto) 1.91 Nucleated RBC % 0 Sodium 139 Potassium 3.0 L Chloride 102 Carbon Dioxide 28.0 Anion Gap 9 BUN 9 Creatinine 0.59 Estim Creat Clear Calc 76.52 Est GFR (MDRD) Af Amer 132 Est GFR (MDRD) Non-Af 109 BUN/Creatinine Ratio 15.2 Glucose 108 H Calcium 9.2 TSH 1.13 Radiography Diagnostic Testing: Clinical Impression(s) from Imaging Studies Chest X-Ray 08/04/22 16:13 IMPRESSION: No acute cardiopulmonary disease. Electronically Signed: Tam Granados DO at 16:39 EDT Reading Location ID and State: [address] [place] [address] Tel [phone], Service support , ED attending interpretation of chest x-ray shows normal heart size and no acute infiltrate. <Dr. Stuart Null DO - Last Filed: 08/04/22 23:15> [facility] Narrative Medical decision making narrative: Patient has had a week of body aches, runny nose, productive cough. Her grandchildren have similar symptoms. She appears well and nontoxic. She is mildly hypertensive with otherwise normal vital signs. She speaking in full sentences in no respiratory distress. Faint expiratory wheeze in all lung márquez. Otherwise benign exam. CXR is negative and COVID/flu swabs negative. Patient was treated with a DuoNeb and ibuprofen for her body aches and was fe eling improved but dropped to 88% on room air and was placed on 2 L. Labs were ordered as well as IV Solu-Medrol and a repeat DuoNeb. CBC shows normal white count at 10.3. BMP remarkable for potassium 3.0, otherwise normal. She was given oral K replacement. Patient was reevaluated and states she feels significantly better. When ambulated again she was 87 to 90% on room air. She was not dyspneic feeling at all. I recommended admission for likely viral URI/underlying diagnosis COPD exacerbation but patient wants to go home. We discussed she would be leaving AGAINST MEDICAL ADVICE and risks include worsening of symptoms, respiratory failure, and . She expressed understanding. Patient was prescribed prednisone and given a new albuterol inhaler. She should return if any symptoms worsen. She was discharged in stable condition. Differential: Viral URI, bacterial pneumonia Test considered but not ordered: Patient has no chest pain and has had exposure to viral illness and is coughing/wheezing so I do not suspect ACS/PE so did not order work-up for this. This patient was seen with a PA/[employer] Individually assessed they patient including history and physical. I have reviewed everything on the chart that is available and agree with the documentation provided by the PA[employer] including discussion about the assessment, treatment plan, discussion, and return precautions. Patie nt presenting with viral symptoms. Initially she had a negative COVID and flu. Chest x-ray was normal. Patient was treated with aerosols. She was feeling improved however was noted she was put on oxygen. Her O2 sats dropped to 87%. When she walks she drops to 80. Point IV line was established and Solu-Medrol 125 was given. She is given another round of breathing treatments. CBC and BMP were obtained which were fairly unremarkable with exception of a potassium of 3.0 which was repleted orally. At this point the patient is still hypoxic and requiring oxygen for anywhere from 8790% on room air but she refuses to stay. She signed appropriate paperwork for AMA. I do believe she has capacity make this decision. She understands the risks. Return precautions were discussed. Lab Data Labs: Laboratory Results - last 24 hr 08/04/22 08/04/22 08/04/22 17:35 17:35 17:35 WBC 10.3 RBC 4.98 Hgb 15.1 H Hct 45.9 MCV 92.2 MCH 30.3 MCHC 32.9 RDW Std Deviation 45.3 H RDW Coeff of Jose [place] 13.3 Plt Count 195 MPV 10.0 Immature Gran % (Auto) 0.400 Neut % (Auto) 73.3 H Lymph % (Auto) 18.6 L [place] % (Auto) 6.8 Eos % (Auto) 0.4 Baso % (Auto) 0.5 Absolute Neuts (auto) 7.6 Absolute Lymphs (auto) 1.91 Nucleated RBC % 0 Sodium 139 Potassium 3.0 L Chloride 102 Carbon Dioxide 28.0 Anion Gap 9 BUN 9 Creatinine 0.59 Estim Creat Clear Calc 76.52 Est GFR (MDRD) Af Amer 132 Est GFR (MDRD) Non-Af 109 BUN/Creatinine Ratio 15.2 Glucose 108 H Calcium 9.2 TSH 1.13 Radiography Diagnostic Testing: Clinical Impression(s) from Imaging Studies Chest X-Ray 08/04/22 16:13 IMPRESSION: No acute cardiopulmonary disease. Electronically Signed: Tam DarwinDO at 16:39 EDT Reading Location ID and State: [address] [place] [address] Tel [phone], Service support , Discharge Plan Triage Chief Complaint: Cough Other Complaint: Cold Sx ED Midlevel Provider: Radha Temple ED Provider: Stuart Null Dx/Rx/DC Orders Clinical Impression: Hypoxia, Bronchitis Instructions: Acute Bronchitis Prescriptions: New prednisone 20 mg tablet 40 mg PO DAILY 5 Days Qty: 10 0RF No Action multivitamin with folic acid [Thera] 1 TABLET tablet 1 tab PO DAILY Primary Care Provider: Care Physician,No Primary Referrals: Care Physician,No Primary [Primary Care Provider] - Activity Restrictions/Additional Instructions: Your chest x-ray showed no evidence of pneumonia and your COVID and influenza swabs are negative. You likely have a viral illness. With your history of smoking and wheezing continue to use your albuterol inhaler and I prescribed prednisone for the next 5 days. Return to the ER if symptoms significantly worsen. Disposition Disposition: Home, Self Care Discharge Date/Time: 08/04/22 19:41
[2022-08-04] MEDS: Ibuprofen 600 MG Tablet PO (16:25)
[2022-08-04] MEDS: Ipratropium/Albuterol Sulfate 3 ML AMPUL.NEB INHALATION (16:28)
[2022-08-04] MEDS: predniSONE 20 MG Tablet 40 MG PO (17:17)
[2022-08-04] MEDS: Albuterol 2.5 MG/3 ML VIAL.NEB. INHALATION (17:34)
[2022-08-04] MEDS: MethylPREDNISolone 125 MG/2 ML Vial IV (17:50)
[2022-08-04 17:54] LABS: Absolute Lymphocyte Count 1.91 X10^3/uL (0.83-4.51); Absolute Neutrophil Count 7.6 X10^3/uL (2.0-7.7); Basophil# 0.05 X10^3/uL; Basophil% 0.5 % (0-1); Eosinophil# 0.04 X10^3/uL; Eosinophils% 0.4 % (0-5); Hematocrit 45.9 % (37-47); Hemoglobin 15.1 g/dL (12.0-15.0); Lymphocyte # 1.91 X10^3/ul (0.83-4.51); Lymphocyte % 18.6 % (19-41); Mean Corp Hgb Conc 32.9 g/dL (32-36); Mean Corpuscular Hgb 30.3 pg (27.0-32.0); Mean Corpuscular Volume 92.2 fL (81-99); Monocyte% 6.8 % (0-10); NRBC Flagged by Analyzer 0 % (0-5); Neutrophil # 7.55 X10^3/uL (2.7-7.7); Neutrophil % 73.3 % (47-70); Platelet Count 195 K/mm3 (150-450); RBC Distribution Width CV 13.3 % (11.6-14.6); RBC Distribution Width SD 45.3 fl (35.1-43.9); Red Blood Count 4.98 M/mm3 (4.2-5.4); White Blood Count 10.3 K/mm3 (4.4-11.0)
[2022-08-04 18:12] LABS: Anion Gap 9 (5-15); BUN 9 mg/dL (7-18); BUN/Creat Ratio 15.2 RATIO (10-20); Calcium,Total 9.2 mg/dL (8.5-10.1); Chloride 102 mmol/L (98-107); Creatinine, Serum 0.59 mg/dL (0.55-1.02); EST Glomerular Filtration Rate 109 mL/min (>60); Est Glom Filt Rate - Afr Amer 132 mL/min (>60); Estimated Creatinine Clearance 76.52 ml/min; Glucose 108 mg/dL (74-106); Sodium Level 139 mmol/L (136-145)
[2022-08-04] MEDS: Potassium Chloride Oral Tablet 20 MEQ 40 MEQ PO (18:25)
[2022-08-04 18:46] LABS: Thyroid Stim Hormone (TSH) 1.13 uIU/mL (0.358-3.74)
[2022-08-04] MEDS: Albuterol Sulfate 8 gm Inhaler (60 puffs) 2 PUFF INHALATION (19:37)
== END 2022-08-04 19:41 | disposition home or self-care (01) ==
PROVIDERS: Emergency Provider Student in an Organized Health Care Education/Training Program; Visit Provider Student in an Organized Health Care Education/Training Program
DX: R09.02 Hypoxemia (principal); J40 Bronchitis, not specified as acute or chronic; F17.210 Nicotine dependence, cigarettes, uncomplicated
CPT/HCPCS: 71045; 80048; 84443; 85025; 87428; 94640; 96374; 99284; A4216